=== PATIENT | female | born 2000 | race American Indian/Alaskan Native ===

== ENCOUNTER 2020-07-06 23:17 | Outpatient (CLI) | payer MEDICAID ==
[2020-07-07 00:27] VITALS: BP 121/59
[2020-07-07] MEDS ORDERED: LACTATED RINGERS 1,000 ML IV ONE (00:59)
[2020-07-07] MEDS ORDERED: LACTATED RINGERS 1,000 ML ONE (01:41)
== END 2020-07-07 04:01 | disposition home or self-care (01) ==
LOC: TRG 23:17 → APU 23:20 → TRG 07-07 04:01
PROVIDERS: ATTEND Obstetrics & Gynecology
DX: O26.893 Other specified pregnancy related conditions, third trimester (principal); R07.9 Chest pain, unspecified; M54.9 Dorsalgia, unspecified; O47.1 False labor at or after 37 completed weeks of gestation; Z3A.37 37 weeks gestation of pregnancy
CPT/HCPCS: 59025; 96360; J7120

== ENCOUNTER 2020-07-27 13:25 | Outpatient (CLI) | payer MEDICAID ==
[2020-07-27 13:53] VITALS: BP 121/71
--- NOTE | 2020-07-27 15:34 | Ultrasound Report ---
ULTRASOUND OBSTETRIC LIMITED INDICATION / CLINICAL INFORMATION: well being need dario. Clinical Gestational Age (GA): 40 weeks 0 days COMPARISON: None available. FINDINGS: HEART RATE (beats per minute): 149 AMNIOTIC FLUID INDEX (cm) = 11.3 (normal = 7-24 cm) PRESENTATION: Cephalic. ADDITIONAL FINDINGS: Gonzalez gestation. IMPRESSION: 1. Gonzalez gestation with normal amniotic fluid index as above. Signer Name: Judd Hayes MD Signed: 07/27/2020 3:30 PM Workstation Name: [id number]
--- NOTE | 2020-07-27 15:53 | Ultrasound Report ---
Biophysical profile INDICATION: well-being COMPARISON: None FINDINGS: breathing movement: 2/2 movement: 2/2 posture and tone: 2/2 Qualitative amniotic fluid volume: 2/2 IMPRESSION: Total score for biophysical profile is 8/8 heart rate is 149 bpm Signer Name: Jorge Alberto Howell MD Signed: 07/27/2020 3:48 PM Workstation Name: [facility]
== END 2020-07-27 16:01 | disposition home or self-care (01) ==
LOC: TRG 13:25 → APU 13:25 → TRG 16:01
PROVIDERS: ATTEND Obstetrics & Gynecology
DX: O47.1 False labor at or after 37 completed weeks of gestation (principal); Z3A.40 40 weeks gestation of pregnancy
CPT/HCPCS: 59025; 76815; 76819

== ENCOUNTER 2020-07-31 11:57 | Outpatient (CLI) | payer MEDICAID ==
[2020-07-31 12:31] VITALS: BP 119/74
[2020-07-31] MEDS ORDERED: AMPICILLIN/NS 2 GM/100 ML 2 GM/100 ML BAG IV ONE (13:15)
[2020-07-31] MEDS ORDERED: ACETAMINOPHEN 325 MG TAB PO PRN (13:15)
[2020-07-31] MEDS ORDERED: fentaNYL 100 MCG/2 ML INJ IV PRN (13:15)
[2020-07-31] MEDS ORDERED: MINERAL OIL 30 ML ORAL LIQD PO PRN (13:15)
[2020-07-31] MEDS ORDERED: ePHEDrine SULFATE 50 MG/1 ML INJ IV PRN (13:15)
[2020-07-31] MEDS ORDERED: ONDANSETRON 4 MG/2 ML INJ IV PRN (13:15)
[2020-07-31] MEDS ORDERED: BUTORPHANOL 2 MG/1 ML INJ IV PRN (13:15)
[2020-07-31] MEDS ORDERED: TERBUTALINE 1 MG/1 ML INJ SUB-Q PRN (13:15)
[2020-07-31] MEDS ORDERED: LIDOCAINE (2%) 20 MG/1 ML VIAL 20 ML MDV INFILTRATI ONE (13:15)
[2020-07-31 13:23] LABS: Bilirubin,Urine NEG (Negative); Blood,Urine SM (Negative); Color,Urine Yellow (Yellow); Mucus,Urine FEW /HPF; Protein,Urine <15 mg/dL mg/dL (Negative); Urobilinogen,Urine < 2.0 mg/dL (<2.0)
[2020-07-31] MEDS ORDERED: OXYTOCIN 20 UNIT/1000ML DRIP 20 UNITS/1,000 ML BAG IV SCH (14:00)
[2020-07-31] MEDS ORDERED: LACTATED RINGERS 1,000 ML IV SCH (14:00)
== END 2020-07-31 13:27 | disposition home or self-care (01) ==
LOC: TRG 11:57 → APU 12:00 → TRG 13:27
PROVIDERS: ATTEND Obstetrics & Gynecology
DX: O47.1 False labor at or after 37 completed weeks of gestation (principal); Z3A.40 40 weeks gestation of pregnancy
CPT/HCPCS: 81001

== ENCOUNTER 2021-02-24 12:09 | Outpatient (CLI) | payer MEDICAID ==
--- NOTE | 2021-02-24 13:19 | XRay Report ---
LEFT SHOULDER 3 VIEW(S) INDICATION / CLINICAL INFORMATION: RIGHT SHOULDER PAIN COMPARISON: None available. FINDINGS: BONES / JOINT(S): No acute fracture or subluxation. No significant arthritis. SOFT TISSUES: No significant abnormality. ADDITIONAL FINDINGS: None. Signer Name: Judd Hayes MD Signed: 02/24/2021 1:14 PM Workstation Name: [id number]
== END 2021-02-24 12:10 | disposition home or self-care (01) ==
LOC: XRAY 12:09
PROVIDERS: ATTEND Orthopaedic Surgery
DX: M25.512 Pain in left shoulder (principal)

== ENCOUNTER 2021-08-25 11:17 | Emergency (ER) | payer MEDICAID ==
[2021-08-25 11:40] VITALS: BP 109/70
[2021-08-25] MEDS ORDERED: LACTATED RINGERS 1,000 ML IV ONE (13:48)
--- NOTE | 2021-08-25 13:51 | Emergency Department Report ---
ED General Adult HPI - General Chief complaint: Nausea/Vomiting/Diarrhea Stated complaint: 11WKS PREG/DEHYDRATION Time Seen by Provider: 08/25/21 13:28 Source: patient Mode of arrival: Ambulatory Limitations: No Limitations - History of Present Illness Initial comments: 21-year-old -[place] female patient presents for nausea and vomiting in x1 week. She states she is currently following with [facility] and that she was seen in office today. Patient states they did a urine test and stated she was dehydrated and referred her to the ED for fluids. She is G3, . Patient is approximately 11 weeks . She denies any hematemesis/coffee-ground emesis, urinary symptoms, abdominal pain, or fever/chills/sweats. Patient states she is otherwise feeling well. -: Sudden - Related Data Home Medications Medication Instructions Recorded Confirmed Last Taken No Known Home Medications [No 08/01/20 08/01/20 Unknown Reported Home Medications] Allergies Allergy/AdvReac Type Severity Reaction Status Date / Time No Known Allergies Allergy Verified 08/25/21 11:40 ED Review of Systems ROS: Stated complaint: 11WKS PREG/DEHYDRATION Other details as noted in HPI Constitutional: denies: chills, fever, malaise, weakness Respiratory: denies: cough, shortness of breath Cardiovascular: denies: chest pain Gastrointestinal: nausea, vomiting. denies: abdominal pain, diarrhea, consti pation, hematemesis, melena, hematochezia Genitourinary: denies: urgency, dysuria, frequency, hematuria, discharge, abnormal menses Musculoskeletal: denies: back pain Neurological: denies: headache Hematological/Lymphatic: denies: swollen glands ED Past Medical Hx - Past Medical History Hx Hypertension: No Hx Congestive Heart Failure: No Hx Diabetes: No Hx Deep Vein Thrombosis: No Hx Renal Disease: No Hx Sickle Cell Disease: No Hx Seizures: No Hx Asthma: No Hx COPD: No Hx HIV: No - Social History Smoking Status: Never Smoker - Medications Home Medications: Home Medications Medication Instructions Recorded Confirmed Last Taken Type No Known Home Medications [No 08/01/20 08/01/20 Unknown History Reported Home Medications] ED Physical Exam - General Limitations: No Limitations General appearance: alert, in no apparent distress - Head Head exam: Present: atraumatic, normocephalic - Eye Eye exam: Present: normal appearance. Absent: scleral icterus - Respiratory Respiratory exam: Present: normal lung sounds bilaterally. Absent: respiratory distress - Cardiovascular Cardiovascular Exam: Present: regular rate, normal rhythm. Absent: systolic murmur, diastolic murmur, rubs, gallop - GI/Abdominal GI/Abdominal exam: Present: soft, normal bowel sounds. Absent: distended, tenderness, rebound, rigid - Neurological Exam Neurological exam: Present: alert, oriented X3, normal gait - Psychiatric Psychiatric exam: Present: normal affect, normal mood - Skin Skin exam: Present: warm, dry, intact, normal color. Absent: rash, cyanosis, diaphoretic ED Course Vital Signs 08/25/21 11:39 Temperature 98.9 F Pulse Rate 100 H Respiratory 18 Rate Blood Pressure 109/70 [Left] O2 Sat by Pulse 100 Oximetry ED Medical Decision Making - Lab Data Result diagrams: 08/25/21 13:53 08/25/21 13:53 - Medical Decision Making 21-year-old -[place] female patient presents for nausea and vomiting in x1 week. She states she is currently following with [facility] [facility] and that she was seen in office today. Patient states they did a urine test and stated she was dehydrated and referred her to the ED for fluids. She is G3, . Patient is approximately 11 weeks . She denies any hematemesis/coffee-ground emesis, urinary symptoms, abdominal pain, or fever/chills/sweats. Patient states she is otherwise feeling well. No significant abnormalities noted on CBC or CMP. Anion gap is noted to be 16. Vitals are normal patient is well-appearing. Nurses having difficulty starting a line on patient. Patient states she does no longer wants the IV medications and fluids. She states that her PET ADOPTION COUNSELOR sent her nausea medicine to the pharmacy and that she would like to leave and brick picker the medication and try it first. She states she will return to the ED if the nausea medication is not working if she continues to vomit or she develops new or worsening symptoms. Strict return precautions discussed with patient, she states understanding. Critical care attestation.: If time is entered above; I have spent that time in minutes in the direct care of this critically ill patient, excluding procedure time. ED Disposition Clinical Impression: Nausea and vomiting during Disposition: 01 HOME / SELF CARE / HOMELESS Is pt being admited?: No Condition: Stable Instructions: Hyperemesis Gravidarum Additional Instructions: Please follow-up with your PET ADOPTION COUNSELOR within 3 to 5 days Forms: Work/School Release Form(ED)
[2021-08-25 14:09] LABS: Basophils # (Auto) 0.1 K/mm3 (0.0-0.1); Basophils % (Auto) 0.7 % (0.0-1.8); Eosinophils # (Auto) 0.1 K/mm3 (0.0-0.4); Eosinophils % (Auto) 0.6 % (0.0-4.3); Hematocrit 37.1 % (30.3-42.9); Hemoglobin 12.5 gm/dl (10.1-14.3); Lymphocytes # (Auto) 2.1 K/mm3 (1.2-5.4); Lymphocytes % (Auto) 21.3 % (13.4-35.0); Mean Corpuscular HGB Conc 34 % (30-34); Mean Corpuscular Volume 79 fl (79-97); Monocytes # (Auto) 0.7 K/mm3 (0.0-0.8); Monocytes % (Auto) 7.2 % (0.0-7.3); Platelet Count 236 K/mm3 (140-440); Red Blood Count 4.67 M/mm3 (3.65-5.03); Red Cell Distribution Width 17.1 % (13.2-15.2)
[2021-08-25 14:29] LABS: Blood Urea Nitrogen 5 mg/dL (7-17); Calcium 9.1 mg/dL (8.4-10.2); Hemolysis Index 30
[2021-08-25] MEDS ORDERED: diphenhydrAMINE 50 MG/ML VIAL IV ONE (14:40)
[2021-08-25] MEDS ORDERED: METOCLOPRAMIDE 10 MG/2 ML INJ IV ONE (14:40)
[2021-08-25 14:54] LABS: BUN/Creatinine Ratio 13
[2021-08-25] MEDS ORDERED: ONDANSETRON 4 MG ODT TAB PO ONE (15:57)
== END 2021-08-25 16:00 | disposition home or self-care (01) ==
LOC: ED 11:17
DX: O21.8 Other vomiting complicating pregnancy (principal); Z3A.11 11 weeks gestation of pregnancy
CPT/HCPCS: 36415; 80048; 85025; 99283; J1200; J2765; J7120; Q0162

== ENCOUNTER 2021-12-19 13:29 | Emergency (ER) | payer MEDICAID ==
[2021-12-19 13:33] VITALS: BP 113/61
--- NOTE | 2021-12-19 14:21 | Emergency Department Report ---
ED Dizziness HPI - General Chief Complaint: Dizziness Stated Complaint: 28WKS /DIZZY/SWELLING/WEAKNESS/PAIN Time Seen by Provider: 12/19/21 14:08 Source: patient Mode of arrival: Ambulatory Limitations: No Limitations - History of Present Illness Initial Comments: Chief complaint: Dizziness HPI: This is a 21-year-old female G3P 1011 who is 28 weeks 0 days according to estimated due date 03/13/2022. She has had intermittent dizziness and epigastric pain for the past 2 weeks. Lightheadedness mostly pronounced when she stands up changes position. Also pronounced when she has prolonged periods of standing. She denies chest pain, shortness of breath or leg pain. She has brief sharp intermittent epigastric pain which radiates to the back. No persistent pain currently. She is asymptomatic at this point. She was encouraged by receptionist clerk Ms. Deborah Escalona to come to the emergency department for evaluation for MD Complaint: lightheadedness, other (Epigastric pain) -: Gradual, week(s) (2 weeks) Timing: gradual onset History of Same: No History of Trauma: No Severity: mild Improves With: rest Worsens With: position, other (Prolonged standing, position change) Associated Symptoms: denies other symptoms - Related Data Home Medications Medication Instructions Recorded Confirmed Last Taken No Known Home Medications [No 08/01/20 08/01/20 Unknown Reported Home Medications] Allergies Allergy/AdvReac Type Severity Reaction Status Date / Time No Known Allergies Allergy Verified 08/25/21 11:40 ED Review of Systems ROS: Stated complaint: 28WKS /DIZZY/SWELLING/WEAKNESS/PAIN Other details as noted in HPI Comment: All other systems reviewed and negative Constitutional: denies: chills, fever, malaise ENT: denies: throat pain Respiratory: denies: cough, shortness of breath Gastrointestinal: abdominal pain Neurological: other (Dizziness) ED Past Medical Hx - Past Medical History Previous Medical History?: No Hx Hypertension: No Hx Congestive Heart Failure: No Hx Diabetes: No Hx Deep Vein Thrombosis: No Hx Renal Disease: No Hx Sickle Cell Disease: No Hx Seizures: No Hx Asthma: No Hx COPD: No Hx HIV: No - Surgical History Past Surgical History?: No - Social History Smoking Status: Never Smoker Substance Use Type: None - Medications Home Medications: Home Medications Medication Instructions Recorded Confirmed Last Taken Type No Known Home Medications [No 08/01/20 08/01/20 Unknown History Reported Home Medications] ED Physical Exam - General Limitations: No Limitations General appearance: alert, in no apparent distress - Head Head exam: Present: atraumatic, normocephalic - Eye Eye exam: Present: normal appearance - ENT ENT exam: Present: mucous membranes moist - Neck Neck exam: Present: normal inspection, full ROM - Respiratory Respiratory exam: Present: normal lung sounds bilaterally. Absent: respiratory distress, wheezes, rales, rhonchi - Cardiovascular Cardiovascular Exam: Present: regular rate, normal rhythm, normal heart sounds. Absent: systolic murmur, diastolic murmur, rubs, gallop - GI/Abdominal GI/Abdominal exam: Present: soft, distended (Gravid), normal bowel sounds. Absent: tenderness, guarding, rebound - Extremities Exam Extremities exam: Present: normal inspection - Neurological Exam Neurological exam: Present: alert, oriented X3 - Psychiatric Psychiatric exam: Present: normal affect, normal mood - Skin Skin exam: Present: warm, dry, intact, normal color. Absent: rash ED Course Vital Signs 12/19/21 12/19/21 13:32 14:36 Temperature 98.2 F Pulse Rate 94 H Respiratory 16 Rate Blood Pressure 113/61 [Right] O2 Sat by Pulse 100 100 Oximetry ED Medical Decision Making - Medical Decision Making I spoke with [employer] Dr. Peck from [facility]. She agreed that patient should be evaluated in L&D with NST and then discharged home. She recommended simethicone for dyspepsia as expected and third trimester . Again patient asymptomatic with normal blood pressure at this time. I have relayed this plan to charge nurse. Critical care attestation.: If time is entered above; I have spent that time in minutes in the direct care o f this critically ill patient, excluding procedure time. ED Disposition Clinical Impression: Dyspepsia, Abdominal pain affecting Disposition: HOME / SELF CARE / HOMELESS Is pt being admited?: No Does the pt Need Aspirin: No Condition: Stable
== END 2021-12-19 14:48 | disposition home or self-care (01) ==
LOC: ED 13:29
DX: O99.613 Diseases of the digestive system complicating pregnancy, third trimester (principal); O99.893 Other specified diseases and conditions complicating puerperium; Z3A.28 28 weeks gestation of pregnancy
CPT/HCPCS: 82962; 99282

== ENCOUNTER 2022-01-25 04:57 | Outpatient (CLI) | payer MEDICAID ==
--- NOTE | 2022-01-25 06:09 | Ultrasound Report ---
OBSTETRIC ULTRASOUND INDICATION: WILFREDO, EFW, presentation COMPARISON: No prior relevant imaging studies are available for comparison. TECHNIQUE: Transabdominal imaging was performed. FINDINGS: Single viable intrauterine is identified. lie: Cephalic. Heart rate: 152 bpm. measurements are as follows: Biparietal diameter 8.6 cm, 34 weeks 4 days Head circumference 31.1 cm, 34 weeks 5 days Abdominal circumference 29.3 cm, 33 weeks 2 days Femur length 6.5 cm, 33 weeks 4 days Estimated birthweight this time is 2232 g. Amniotic fluid index is 11.9 cm, within normal limits. No placental abnormalities are seen. CONCLUSION: Single viable intrauterine currently in cephalic position with estimated weight of 22 32 g. Amniotic fluid index is within normal limits. Signer Name: Shaheen Deutsch MD Signed: 01/25/2022 6:04 AM Workstation Name: [id number]
[2022-01-25] MEDS ORDERED: ONDANSETRON 4 MG/2 ML INJ IV ONE (08:16)
[2022-01-25] MEDS ORDERED: METOCLOPRAMIDE 10 MG/2 ML INJ IV STA (08:16)
[2022-01-25] MEDS ORDERED: LACTATED RINGERS 1,000 ML IV ONE (08:17)
[2022-01-25 08:27] VITALS: BP 107/59
--- NOTE | 2022-01-27 13:09 | Electrocardiograph Report ---
[facility] Test Date: 2022-01-25 Test Time: 07:40:07 Pat Name: MYRA LEPE Department: Room: Gender: F Manager [employer]: SANJAY : 2000 Requested By: KRYS CABRALES Order Number: [id number] Reading MD: Sierra Torrez Measurements Intervals [place] Rate: 102 P: 54 SC: 155 QRS: 19 QRSD: 82 T: 15 QT: 326 QTc: 425 Interpretive Statements Sinus tachycardia No previous ECG available for comparison Electronically Signed On 01-27-2022 13:08:47 EST by Sierra Torrez
== END 2022-01-25 08:41 | disposition home or self-care (01) ==
LOC: TRG 04:57 → APU 06:24 → TRG 08:41
PROVIDERS: ATTEND Obstetrics & Gynecology Gynecology
DX: O99.413 Diseases of the circulatory system complicating pregnancy, third trimester (principal); Z3A.33 33 weeks gestation of pregnancy
CPT/HCPCS: 36600; 59025; 76816; 82805; 93005; 93010

== ENCOUNTER 2022-02-24 11:46 | Outpatient (CLI) | payer MEDICAID ==
[2022-02-24 12:26] VITALS: BP 97/59
--- NOTE | 2022-02-24 13:41 | Ultrasound Report ---
ULTRASOUND OBSTETRIC LIMITED ULTRASOUND BIOPHYSICAL PROFILE INDICATION / CLINICAL INFORMATION: wellbeing. - Clinical Gestational Age (GA) in weeks, days: 37, 4 TECHNIQUE: Transabdominal. COMPARISON: None available. FINDINGS: BREATHING MOVEMENT = 2 GROSS BODY MOVEMENT = 2 TONE = 2 QUALITATIVE AMNIOTIC FLUID VOLUME = 2 TOTAL BIOPHYSICAL SCORE = 8/8 HEART RATE (beats per minute): 137 AMNIOTIC FLUID INDEX (cm) = subjectively normal (normal = 7-24 cm) PRESENTATION: Cephalic. ADDITIONAL FINDINGS: None. IMPRESSION: 1. Biophysical Score = 8/8 Signer Name: Elba Hyman MD Signed: 02/24/2022 1:37 PM Workstation Name: [email or web address]
== END 2022-02-24 14:42 | disposition home or self-care (01) ==
LOC: TRG 11:46 → APU 11:47 → TRG 14:42
PROVIDERS: ATTEND Obstetrics & Gynecology
DX: O36.8130 Decreased fetal movements, third trimester, not applicable or unspecified (principal); Z3A.37 37 weeks gestation of pregnancy
CPT/HCPCS: 59025; 76819

== ENCOUNTER 2022-03-11 14:53 | Outpatient (CLI) | payer MEDICAID ==
[2022-03-11 15:47] VITALS: BP 110/66
[2022-03-11] MEDS ORDERED: LACTATED RINGERS 1,000 ML IV ONE (16:29)
--- NOTE | 2022-03-11 18:36 | Ultrasound Report ---
ULTRASOUND OBSTETRIC WITH BIOPHYSICAL PROFILE INDICATION / CLINICAL INFORMATION: BPP. well-being - Clinical Gestational Age (GA) in weeks, days: 39, 5 TECHNIQUE: Transabdominal. COMPARISON: 02/24/22 FINDINGS: Single intrauterine . Biparietal Diameter = 9.7 cm = 39, 5 weeks, days Head Circumference = 34.2 cm = 39, 3 weeks, days Abdominal Circumference = 35.1 cm = 39, 0 weeks, days Femur Length = 7.6 cm = 38, 5 weeks, days Average Ultrasound Age (AUA) = 39, 2 weeks, days Heart Rate: 157 beats per minute. Estimated Weight in grams (if calculated): 3692 g Estimated Weight Growth Percentile (if calculated): Not calculated Position: cephalic. Cervix: closed. Length in cm (if measured): Not measured. Placenta: anterior and free of the os. Amniotic Fluid Volume: normal Amniotic Fluid Index (WILFREDO) in cm (if calculated): 7.1 cm. Maternal Adnexa: Not well evaluated. BREATHING MOVEMENT = 2 GROSS BODY MOVEMENT = 2 TONE = 2 QUALITATIVE AMNIOTIC FLUID VOLUME = 2 TOTAL BIOPHYSICAL SCORE = 8/8 IMPRESSION: 1. Single, living intrauterine with estimated sonographic age of 39, 2 weeks, days. 2. Biophysical score = 8/8. 3. No acute abnormality. Signer Name: Elba Hyman MD Signed: 03/11/2022 6:32 PM Workstation Name: [id number]
== END 2022-03-11 19:23 | disposition home or self-care (01) ==
LOC: TRG 14:53 → LD 14:54 → TRG 19:23
PROVIDERS: ATTEND Obstetrics & Gynecology
DX: O47.1 False labor at or after 37 completed weeks of gestation (principal); Z3A.39 39 weeks gestation of pregnancy
CPT/HCPCS: 59025; 76816; 76819; 96360; J7120